=== PATIENT | female | born 1975 | race Caucasian/White ===

== ENCOUNTER 2018-08-11 09:50 | Emergency (ER) | payer OTHER ==
[2018-08-11] MEDS ORDERED: Dexamethasone 10 MG/ML VIAL ONE (10:24)
== END 2018-08-11 10:41 | disposition home or self-care (01) ==
LOC: SCSER 09:50
DX: J02.9 Acute pharyngitis, unspecified (principal); M06.9 Rheumatoid arthritis, unspecified; Z79.899 Other long term (current) drug therapy
CPT/HCPCS: 87430; 96372; J1100